=== PATIENT | female | born 1985 | race Hispanic/Latino ===

== ENCOUNTER 2020-10-30 06:42 | Emergency (ER) | payer OTHER ==
[2020-10-30 07:17] LABS: Urine Blood Negative (Negative); Urine Glucose Negative (Negative); Urine Protein Negative (Negative)
[2020-10-30 07:58] LABS: ALT/SGPT 34 U/L (12-78); AST/SGOT 14 U/L (15-37); Albumin 3.6 g/dL (3.4-5.0); Alkaline Phosphatase 79 U/L (45-117); BUN Blood Urea Nitrogen 12 mg/dL (7-18); Bicarbonate 29 mmol/L (21-32); Bilirubin Direct < 0.1 mg/dL (0-0.2); Bilirubin Total 0.2 mg/dL (0.2-1.0); Glucose Level 88 mg/dL (74-106); Lipase 150 U/L (73-393); Potassium 3.9 mmol/L (3.5-5.1); Protein, Total 7.8 g/dL (6.4-8.2); Sodium Level 142 mmol/L (136-145)
[2020-10-30 08:02] LABS: Absolute Lymphocytes (CBC) 1.4 K/uL (0.7-4.9); Basophils % 2.2 % (0-1.3); Hematocrit 35.9 % (36.0-45.0); MPV 7.7 fL (7.6-11.3); RBC Red Blood Cell Count 3.98 M/uL (3.86-4.86)
[2020-10-30] MEDS ORDERED: LIDOCAINE VISCOUS 2% SOLN 15 ML UDC ONE (08:15)
[2020-10-30] MEDS ORDERED: MAGNES/ALUMIN/SIMET 30ML UCUP ONE (08:15)
--- NOTE | 2020-10-30 08:18 | ER ---
Nurse's Notes [facility] Name: Roro Quiros Age: 35 yrs Sex: Female : 1985 Arrival Date: 10/30/2020 Time: 06:46 Bed 5 Private MD: Diagnosis: Epigastric pain;Functional dyspepsia Presentation: 10/30 07:01 Chief complaint: Patient states: upper quad. pain since Thursday that has been getting em worse the past few days, denies N/V/D or fever, had gallbladder removed 3 years ago, last regular BM was . Coronavirus screen: Vaccine status: Patient reports being unvaccinated. Ebola Screen: Patient negative for fever greater than or equal to 101.5 degrees Fahrenheit, and additional compatible Ebola Virus Disease symptoms Patient denies exposure to infectious person. Patient denies travel to an Ebola-affected area in the 21 days before illness onset. No symptoms or risks identified at this time. Initial Sepsis Screen: Does the patient meet any 2 criteria? No. Patient's initial sepsis screen is negative. Does the patient have a suspected source of infection? No. Patient's initial sepsis screen is negative. Risk Assessment: Do you want to hurt yourself or someone else? Patient reports no desire to harm self or others. Onset of symptoms was October 30, 2020. 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 - Social history:: Smoking status: Patient denies any tobacco usage or history of. Screenin:46 Abuse screen: Denies threats or abuse. Denies injuries from another. Nutritional tr6 screening: No deficits noted. Tuberculosis screening: No symptoms or risk factors identified. Fall Risk None identified. Assessment: 07:00 General: Appears in no apparent distress. Behavior is calm, cooperative, appropriate tr6 for age. Pain: Complains of pain in epigastric area. Neuro: No deficits noted. Cardiovascular: No deficits noted. Respiratory: No deficits noted. GI: Bowel sounds present X 4 quads. Abd is soft and non tender. : No deficits noted. : No deficits noted. EENT: No deficits noted. Derm: No deficits noted. Musculoskeletal: No deficits noted. Vital Signs: 07:01 Pulse 54; Resp 18; Temp 97.8; Pulse Ox 99% on R/A; Weight 97.52 kg; Height 5 ft. 5 in. em (165.10 cm); Pain 5/10; 07:06 BP 124 / 80; em 07:01 Body Mass Index 35.78 (97.52 kg, 165.10 cm) em ED Course: 06:46 Patient arrived in ED. bp1 07:05 Triage completed. em 07:05 Arm band placed on. em 07:07 Karthik Aleman PA is PHCP. jr8 07:07 Javi Cantrell MD is Attending Physician. jr8 07:22 Alicia Koroma RN is Primary Nurse. tr6 07:30 Initial lab(s) drawn, by id, sent to lab. Inserted saline lock: 20 gauge in right kj1 antecubital area, using aseptic technique. Blood collected. 08:17 Pantera Ventura MD is Referral Physician. jr8 08:46 Patient has correct armband on for positive identification. Bed in low position. Call tr6 light in reach. Side rails up X 1. 08:46 No provider procedures requiring assistance completed. IV discontinued, intact, tr6 bleeding controlled, No redness/swelling at site. Pressure dressing applied. Administered Medications: 07:53 Drug: GI Cocktail without - (Maalox Suspension 30 ml, Lidocaine Liquid 2 % 15 tr6 ml) Route: PO; 08:45 Follow up: Response: Pain is decreased tr6 Outcome: 08:17 Discharge ordered by . jr8 08:46 Discharged to home ambulatory. tr6 08:46 Condition: improved 08:46 Discharge instructions given to patient, Instructed on discharge instructions, follow up and referral plans. medication usage, safety practices, Demonstrated understanding of instructions, follow-up care, medications, Prescriptions given X 1. 08:47 Patient left the ED. tr6 Signatures: Herb Awad RN RN em Karthik Aleman PA PA jr8 So Renteria kj1 Yeny Khalil bp1 Ramnanan, Alicia, RN RN tr6
--- NOTE | 2020-10-30 08:18 | EDPHYS ---
Physician Documentation [facility] Name: Roro Quiros Age: 35 yrs Sex: Female : 1985 Arrival Date: 10/30/2020 Time: 06:46 Bed 5 Private MD: ED Physician Javi Cantrell HPI: 10/30 08:14 This 35 yrs old Female presents to ER via Ambulatory with complaints of jr8 Abdominal Pain, Back Pain. 08:14 The patient presents with abdominal pain in the epigastric area. Onset: The jr8 symptoms/episode began/occurred acutely. The symptoms radiate to back. Associated signs and symptoms: Pertinent positives: nausea. The symptoms are described as burning. Modifying factors: The symptoms are alleviated by antacids, partially. the symptoms are aggravated by nothing. Severity of pain: At its worst the pain was moderate in the emergency department the pain is unchanged. The patient has not experienced similar symptoms in the past. The patient has not recently seen a physician. 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 - Social history:: Smoking status: Patient denies any tobacco usage or history of. ROS: 08:14 Eyes: Negative for injury, pain, redness, and discharge, ENT: Negative for injury, jr8 pain, and discharge, Neck: Negative for injury, pain, and swelling, Cardiovascular: Negative for chest pain, palpitations, and edema, Respiratory: Negative for shortness of breath, cough, wheezing, and pleuritic chest pain, Back: Negative for injury and pain, MS/Extremity: Negative for injury and deformity, Skin: Negative for injury, rash, and discoloration, Neuro: Negative for headache, weakness, numbness, tingling, and seizure. 08:14 Abdomen/GI: Positive for abdominal pain, Negative for nausea, vomiting, and diarrhea, abdominal distension, hematemesis, black/tarry stool, rectal bleeding. Exam: 08:14 Constitutional: This is a well developed, well nourished patient who is awake, alert, jr8 and in no acute distress. ENT: Nares patent. No nasal discharge, no septal abnormalities noted. Tympanic membranes are normal and external auditory canals are clear. Oropharynx with no redness, swelling, or masses, exudates, or evidence of obstruction, uvula midline. Mucous membranes moist. Cardiovascular: Regular rate and rhythm with a normal S1 and S2. No gallops, murmurs, or rubs. Normal PMI, no JVD. No pulse deficits. Respiratory: Lungs have equal breath sounds bilaterally, clear to auscultation and percussion. No rales, rhonchi or wheezes noted. No increased work of breathing, no retractions or nasal flaring. Back: No spinal tenderness. No costovertebral tenderness. Full range of motion. Skin: Warm, dry with normal turgor. Normal color with no rashes, no lesions, and no evidence of cellulitis. MS/ Extremity: Pulses equal, no cyanosis. Neurovascular intact. Full, normal range of motion. Neuro: Awake and alert, GCS 15, oriented to person, place, time, and situation. Motor strength 5/5 in all extremities. Sensory grossly intact. 08:14 Abdomen/GI: Inspection: obese Bowel sounds: active, all quadrants, Palpation: soft, in all quadrants, mild abdominal tenderness, in the epigastric area, mass, is not appreciated, rebound tenderness, is not appreciated, voluntary guarding, is not appreciated, involuntary guarding, is elicited in all quadrants, no appreciated organomegaly, Indicators: McBurney's point is not tender, Marin's sign is negative, Rovsing's sign is negative, Liver: tenderness, is not appreciated. Vital Signs: 07:01 Pulse 54; Resp 18; Temp 97.8; Pulse Ox 99% on R/A; Weight 97.52 kg; Height 5 ft. 5 in. em (165.10 cm); Pain 5/10; 07:06 BP 124 / 80; em 07:01 Body Mass Index 35.78 (97.52 kg, 165.10 cm) em MDM: 07:07 Patient medically screened. jr8 08:14 Differential diagnosis: bowel obstruction, gastritis, gastroesophageal reflux disease, jr8 GI Bleed, Hepatitis, non-specific abd pain, pancreatitis, Peptic Ulcer Disease. Data reviewed: vital signs, nurses notes, lab test result(s), and as a result, I will discharge patient. Data interpreted: Pulse oximetry: on room air is 99 %. Interpretation: normal. 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 ED course: Patient has had mild improvement with the GI cocktail. No acute lab abnormalities which was discussed with the patient. Hemodynamically stable otherwise. Recommended gastroenterology follow-up at this time and will start patient on a proton pump inhibitor. Signs and symptoms given to patient that would indicate need for further return evaluation by the emergency room. Patient understands is good with this plan at this time.. 10/30 07:17 Order name: Urine Dipstick-Ancillary; Complete Time: 07:20 EDMS 10/30 07:20 Order name: Basic Metabolic Panel; Complete Time: 08:00 jr8 10/30 07:20 Order name: CBC with Diff; Complete Time: 08:18 jr8 10/30 07:20 Order name: Hepatic Function; Complete Time: 08:00 jr8 10/30 07:20 Order name: Lipase; Complete Time: 08:00 jr8 10/30 07:22 Order name: Urine --Ancillary (enter results) bd 10/30 07:20 Order name: IV Saline Lock; Complete Time: 07:43 jr8 10/30 07:20 Order name: Labs collected and sent; Complete Time: 07:43 jr8 Administered Medications: 07:53 Drug: GI Cocktail without - (Maalox Suspension 30 ml, Lidocaine Liquid 2 % 15 tr6 ml) Route: PO; 08:45 Follow up: Response: Pain is decreased tr6 Disposition: 19:15 Co-signature as Attending Physician, Javi Cantrell MD I agree with the assessment ma2 and plan of care. 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 I agree with assessment and care plan and confirm the diagnosis (es) above. Disposition Summary: 10/30/20 08:17 Discharge Ordered Location: Home jr8 Problem: new jr8 Symptoms: have improved jr8 Condition: Stable jr8 Diagnosis - Epigastric pain jr8 - Functional dyspepsia jr8 Followup: jr8 - With: Pantera Ventura MD - When: 2 - 3 days - Reason: Recheck today's complaints, Continuance of care, Re-evaluation by your physician Discharge Instructions: - Discharge Summary Sheet jr8 - Abdominal Pain, Adult jr8 - Food Choices for Gastroesophageal Reflux Disease, Adult jr8 - Gastritis, Adult jr8 - Gastroesophageal Reflux Disease, Adult jr8 Forms: - Medication Reconciliation Form jr8 - Thank You Letter jr8 - Antibiotic Education jr8 - Prescription Opioid Use jr8 - Work release form jr8 Prescriptions: - omeprazole 40 mg Oral capsule,delayed release(DR/EC) - take 1 capsule by ORAL route once daily before a meal; 30 capsule; Refills: 0, jr8 Product Selection Permitted Signatures: Dispatcher [employer] Herb Qureshi, RN RN Karthik Wilks PA PA jr8 Javi Cantrell MD MD ma2 Alicia Koroma RN RN tr6
[2020-10-30 08:54] VITALS: TEMP 97.8; O2SAT 99
[2020-10-30 08:55] VITALS: BP 124/80
== END 2020-10-30 08:47 | disposition home or self-care (01) ==
LOC: ER 06:42
DX: K30 Functional dyspepsia (principal)
CPT/HCPCS: 36415; 80048; 80076; 81003; 81025; 83690; 85025; 99284

== ENCOUNTER → 2023-04-28 | Emergency (ER) | payer OTHER, SELFPAY ==
[~2023-04-28] MED LIST: ONDANSETRON 4 MG/2 ML VIAL ONE
[2023-04-28 16:59] LABS: Absolute Lymphocytes (CBC) 1.8 K/uL (0.7-4.9); Hematocrit 32.4 % (36.0-45.0); Lymphocytes % 21.3 % (15.3-44.8); MCV 87.6 fL (80-100); MPV 7.3 fL (7.6-11.3); Platelets 367 thou/uL (152-406)
[2023-04-28 17:20] LABS: ALT/SGPT 23 U/L (13-56); AST/SGOT 10 U/L (15-37); Albumin 3.8 g/dL (3.4-5.0); Alkaline Phosphatase 66 U/L (45-117); BUN Blood Urea Nitrogen 13 mg/dL (7-18); Bicarbonate 28 mEq/L (21-32); Glomerular Filtration Rate 97 ml/min (=/>90); Glucose Level 91 mg/dL (74-106); Potassium 3.8 mEq/L (3.5-5.1); Protein, Total 7.8 g/dL (6.4-8.2); Sodium Level 140 mEq/L (136-145)
[2023-04-28 17:23] LABS: Bilirubin Total < 0.1 mg/dL (0.2-1.0)
--- NOTE | 2023-04-28 17:34 | RAD REPORT ---
EXAM DESCRIPTION: CT - [id number] - 04/28/2023 5:21 pm CLINICAL HISTORY: NUMBNESS COMPARISON: No comparisons TECHNIQUE: Axial 5 mm thick images of the head were obtained. Axial 2 mm thick images of the cervical spine were obtained with sagittal and coronal reconstruction images generated and reviewed. All CT scans are performed using dose optimization technique as appropriate and may include automated exposure control or mA/KV adjustment according to patient size. FINDINGS: CT HEAD WITHOUT CONTRAST: No acute hemorrhage, hydrocephalus or extra-axial collection is identified.No areas of brain edema or midline shift. Small air-fluid level the right maxillary sinus.The calvarium is intact. CT CERVICAL SPINE WITHOUT CONTRAST: No fracture or subluxation.No prevertebral soft tissues swelling is identified. IMPRESSION: No acute intracranial or cervical spine findings.
--- NOTE | 2023-04-28 17:52 | EDPHYS ---
Physician Documentation [facility] Name: Roro Quiros Age: 38 yrs Sex: Female : 1985 Arrival Date: 04/28/2023 Time: 16:24 Bed 19 Private MD: ED Physician Jordi Lopez HPI: 04/28 16:54 This 38 yrs old Female presents to ER via Ambulatory with complaints of sp3 Numbness Of Arm, Numbness of Legs. 16:54 38-year-old female with history of anxiety, anemia presents to the ED with chief sp3 complaint of bilateral upper and lower extremity numbness and tingling off and on for greater than 1 week. She denies any headache, neck pain, chest pain, shortness of breath, back pain, abdominal pain, nausea, vomiting, diarrhea, rash, syncope, near syncope, motor weakness, speech changes, vision changes, loss of balance, dizziness, vertigo, known sick contacts, travel history, trauma, or any other signs or symptoms on ROS at this time.. 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 - Social history:: Smoking status: Patient denies any tobacco usage or history of. ROS: 16:55 Constitutional: Negative for fever, chills, and weight loss, Eyes: Negative for injury, sp3 pain, redness, and discharge, ENT: Negative for injury, pain, and discharge, Neck: Negative for injury, pain, and swelling, Cardiovascular: Negative for chest pain, palpitations, and edema, Respiratory: Negative for shortness of breath, cough, wheezing, and pleuritic chest pain, Abdomen/GI: Negative for abdominal pain, nausea, vomiting, diarrhea, and constipation, Back: Negative for injury and pain, MS/Extremity: Negative for injury and deformity, Skin: Negative for injury, rash, and discoloration, 16:55 All other systems are negative, Exam: 16:58 Constitutional: This is a well developed, well nourished patient who is awake, alert, sp3 and in no acute distress. Head/Face: Normocephalic, atraumatic. Eyes: Pupils equal round and reactive to light, extra-ocular motions intact. Lids and lashes normal. Conjunctiva and sclera are non-icteric and not injected. Cornea within normal limits. Periorbital areas with no swelling, redness, or edema. ENT: Nares patent. No nasal discharge, no septal abnormalities noted. External auditory canals are clear. Oropharynx with no redness, swelling, or masses, exudates, or evidence of obstruction, uvula midline. Mucous membranes moist. Neck: Trachea midline, no thyromegaly or masses palpated, and no cervical lymphadenopathy. Supple, full range of motion without nuchal rigidity, or vertebral point tenderness. No Meningismus. Chest/axilla: Normal chest wall appearance and motion. Nontender with no deformity. No lesions are appreciated. Cardiovascular: Regular rate and rhythm with a normal S1 and S2. No gallops, murmurs, or rubs. Normal PMI, no JVD. No pulse deficits. Respiratory: Lungs have equal breath sounds bilaterally, clear to auscultation and percussion. No rales, rhonchi or wheezes noted. No increased work of breathing, no retractions or nasal flaring. Abdomen/GI: Soft, non-tender, with normal bowel sounds. No distension or tympany. No guarding or rebound. No evidence of tenderness throughout. Back: No spinal tenderness. No costovertebral tenderness. Full range of motion. Skin: Warm, dry with normal turgor. Normal color with no rashes, no lesions, and no evidence of cellulitis. MS/ Extremity: Pulses equal, no cyanosis. Neurovascular intact. Full, normal range of motion. Neuro: Awake and alert, GCS 15, oriented to person, place, time, and situation. Cranial nerves II-XII grossly intact. Motor strength 5/5 in all extremities. Sensory grossly intact. Cerebellar exam normal. Normal gait. Psych: Awake, alert, with orientation to person, place and time. Behavior, mood, and affect are within normal limits. Vital Signs: 16:38 BP 156 / 95; Pulse 92; Resp 16 S; Temp 97.7; Pulse Ox 100% on R/A; Weight 90.72 kg (R); as6 Height 5 ft. 5 in. (R); Pain 10/10; 16:38 Body Mass Index 33.28 (90.72 kg, 165.1 cm) as6 16:38 Pain Scale: Adult as6 MDM: 16:33 Patient medically screened. sp3 16:58 Data reviewed: vital signs, nurses notes, lab test result(s), radiologic studies. ED sp3 course: 38-year-old female with all extremity numbness and tingling. Consider anxiety versus nonspecific paresthesia versus disc disease versus musculoskeletal issue. I am not highly suspicious for primary CVA/TIA spectrum or other cerebral pathology. However given symptoms, we will obtain CT scan of the head and C-spine as well as general labs assessing for hemoglobin and other electrolytes. If workup is negative, I have advised patient to follow back up with her PCP for outpatient thyroid studies and/or possible neurology consultation.. 17:51 ED course: Scans are all negative and laboratory values are within normal limits except sp3 for hemoglobin mildly low at 10.8. Will reassure patient and have her follow-up with PCP for further workup as needed.. 04/28 16:38 Order name: CBC with Diff; Complete Time: 17:50 sp3 04/28 16:38 Order name: CMP; Complete Time: 17:50 sp3 04/28 16:38 Order name: Test, Urine; Complete Time: 17:50 sp3 04/28 16:38 Order name: CT Head C Spine; Complete Time: 17:50 sp3 04/28 16:38 Order name: IV Saline Lock; Complete Time: 16:59 sp3 04/28 16:38 Order name: Labs collected and sent; Complete Time: 16:59 sp3 Administered Medications: 17:47 Drug: Ondansetron IVP 4 mg IVP once; over 2 minutes Route: IVP; Site: right antecubital;ld1 Disposition Summary: 04/28/23 17:52 Discharge Ordered Notes: Location: Home sp3 Condition: Stable sp3 Diagnosis - Paresthesias, anxiety, mild anemia sp3 Followup: sp3 - With: Private Physician - When: Upon discharge from the Emergency Department - Reason: Continuance of care Discharge Instructions: - Discharge Summary Sheet sp3 - Paresthesia sp3 - Managing Anxiety, Adult sp3 Forms: - Medication Reconciliation Form sp3 - Thank You Letter sp3 - Antibiotic Education sp3 - Prescription Opioid Use sp3 - Patient Portal Instructions sp3 - Leadership Thank You Letter sp3 Signatures: Dispatcher Taylor Gibson RN RN ld1 Jordi Lopez MD MD sp3 Sylvester Nixon RN RN as6
--- NOTE | 2023-04-28 17:52 | ER ---
Nurse's Notes [facility] Name: Roro Quiros Age: 38 yrs Sex: Female : 1985 Arrival Date: 04/28/2023 Time: 16:24 Bed 19 Private MD: Diagnosis: Paresthesias, anxiety, mild anemia Presentation: 04/28 16:39 Chief complaint: Patient states: numbness of arms and legs that started Thursday. as6 Restless legs at night that started Thursday and also dizziness, nausea, SOB, fatigue, and LIAO. Coronavirus screen: At this time, the client does not indicate any symptoms associated with coronavirus-19. Ebola Screen: No symptoms or risks identified at this time. Initial Sepsis Screen: Does the patient meet any 2 criteria? No. Patient's initial sepsis screen is negative. Does the patient have a suspected source of infection? No. Patient's initial sepsis screen is negative. Risk Assessment: Do you want to hurt yourself or someone else? Patient reports no desire to harm self or others. Onset of symptoms was April 22, 2023. 16:39 Acuity: SAMEERA 3 as6 16:39 Method Of Arrival: Ambulatory as6 Triage Assessment: 18:05 General: Appears in no apparent distress. comfortable, Behavior is calm, cooperative, ld1 appropriate for age. Pain: Denies pain. EENT: No signs and/or symptoms were reported regarding the EENT system. Neuro: Level of Consciousness is awake, alert, obeys commands, Oriented to person, place, time, situation. Cardiovascular: Capillary refill < 3 seconds Patient's skin is warm and dry. Respiratory: Airway is patent Respiratory effort is even, unlabored. GI: Abdomen is flat, non-distended. : No signs and/or symptoms were reported regarding the genitourinary system. Derm: No signs and/or symptoms reported regarding the dermatologic system. Musculoskeletal: No signs and/or symptoms reported regarding the musculoskeletal system. 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 - Social history:: Smoking status: Patient denies any tobacco usage or history of. Screenin:04 [facility] ED Fall Risk Assessment (Adult) History of falling in the last 3 months, ld1 including since admission No falls in past 3 months (0 pts). Abuse screen: Denies threats or abuse. Denies injuries from another. Nutritional screening: No deficits noted. Tuberculosis screening: No symptoms or risk factors identified. Assessment: 18:06 General: Appears in no apparent distress. comfortable, Behavior is calm, cooperative, ld1 appropriate for age. Pain: Complains of pain in face Pain does not radiate. Pain currently is 8 out of 10 on a pain scale. Quality of pain is described as throbbing, Pain began suddenly. Neuro: Level of Consciousness is awake, alert, obeys commands, Oriented to person, place, time, situation. Cardiovascular: Capillary refill < 3 seconds Patient's skin is warm and dry. Respiratory: Airway is patent Respiratory effort is even, unlabored. GI: Abdomen is flat, non-distended. : No signs and/or symptoms were reported regarding the genitourinary system. EENT: No signs and/or symptoms were reported regarding the EENT system. Derm: No signs and/or symptoms reported regarding the dermatologic system. Musculoskeletal: No signs and/or symptoms reported regarding the musculoskeletal system. Vital Signs: 16:38 BP 156 / 95; Pulse 92; Resp 16 S; Temp 97.7; Pulse Ox 100% on R/A; Weight 90.72 kg (R); as6 Height 5 ft. 5 in. (R); Pain 10/10; 16:38 Body Mass Index 33.28 (90.72 kg, 165.1 cm) as6 16:38 Pain Scale: Adult as6 ED Course: 16:28 Patient arrived in ED. rg4 16:29 Jordi Lopez MD is Attending Physician. sp3 16:36 Taylor Story, TITO is Primary Nurse. ld1 16:38 Arm band placed on. as6 16:40 Triage completed. as6 16:59 Test, Urine Sent. ld1 17:00 Inserted saline lock: 20 gauge in right antecubital area, using aseptic technique. ld1 Blood collected. 17:21 CT Head C Spine In Process Unspecified. EDMS 18:04 Patient has correct armband on for positive identification. Placed in gown. Bed in low ld1 position. Call light in reach. Side rails up X2. patient monitor on. Pulse ox on. NIBP on. Door closed. Noise minimized. Warm blanket given. 18:04 No provider procedures requiring assistance completed. IV discontinued, intact, ld1 bleeding controlled, No redness/swelling at site. 18:08 Provided Education on: Follow up instructions. ld1 Administered Medications: 17:47 Drug: Ondansetron IVP 4 mg IVP once; over 2 minutes Route: IVP; Site: right antecubital;ld1 Medication: 18:06 VIS not applicable for this client. ld1 Outcome: 17:52 Discharge ordered by . sp3 18:06 Discharged to home ambulatory, ld1 18:06 Condition: stable 18:06 Discharge instructions given to patient, Instructed on discharge instructions, follow up and referral plans. Demonstrated understanding of instructions, follow-up care, 18:08 Patient left the ED. ld1 Signatures: Dispatcher [employer] EDIngrid Petersen rg4 Taylor Story, RN RN ld1 Jordi Lopez MD MD sp3 Sylvester Nixon, TITO RN as6
[2023-04-28 18:22] VITALS: BP 156/95; TEMP 97.7; O2SAT 100
== END ==
LOC: ER 16:24
DX: R20.2 Paresthesia of skin (principal); F41.9 Anxiety disorder, unspecified; D64.9 Anemia, unspecified
CPT/HCPCS: 36415; 70450; 72125; 80053; 81025; 85025; 96374; 99285; J2405